=== PATIENT | female | born 1980 | race Caucasian/White ===

== ENCOUNTER 2025-06-14 21:16 | Emergency (ER) | payer BC, OTHER ==
[~2025-06-14] VITALS: Ht 175.3 cm; Wt 104.3 kg
[2025-06-14] MEDS ORDERED: MINERAL OIL 133 ML (PYXIS) 1 EA ENEMA RC ONE ×2 (22:36→23:41)
[2025-06-14] MEDS: MINERAL OIL 133 ML (PYXIS) 1 EA ENEMA RC ONE ×2 (22:45→23:44)
[2025-06-15] MEDS ORDERED: MAGNESIUM CITRATE 296 ML BOTTLE ONE (03:22)
[2025-06-15 03:25] VITALS: BP 142/84; TEMP 98.6; O2SAT 100
[2025-06-15] MEDS ORDERED: MAGNESIUM CITRATE 296 ML BOTTLE PO ONE (03:30)
== END 2025-06-15 03:25 | disposition home or self-care (01) ==
LOC: ER 21:19
DX: K59.03 Drug induced constipation (principal); T40.2X5A Adverse effect of other opioids, initial encounter; I10 Essential (primary) hypertension; M79.7 Fibromyalgia; Z88.0 Allergy status to penicillin; Z88.1 Allergy status to other antibiotic agents; Z88.2 Allergy status to sulfonamides; Z96.659 Presence of unspecified artificial knee joint
CPT/HCPCS: 74018